=== PATIENT | female | born 1940 | race Caucasian/White ===

== ENCOUNTER 2024-12-17 03:53 | Emergency (ER) | payer MEDICARE ==
[~2024-12-17 03:53] MED LIST: ASPIRIN EC81 MG PO; BELLADONNA30 MG/100 MISC; CALCIUM MAGNES1 EAC2 PO; CINNAMON500 MG PO; COD LIVER OIL1 EAC1 PO; CRANBERRY300 MG PO; EFFEXOR XR37.5 MG PO; FENOFIBRATE160 MG PO; GLUCOSAMINE1000 MG PO; HUMALOG100 UNIT/1 SUB-Q; LANTUS100 UNITS/ SUB-Q; LEVOTHYROXINE75 MCG PO; LISINOPRIL5 MG PO; METFORMIN HCL500 MG PO; OMEGA 3 1,0001 EACH PO; OMEPRAZOLE20 MG PO; PERCOCET 7.5-31 EACH PO; SIMVASTATIN20 MG PO; VITAMIN D-32000 UNIT PO
[2024-12-17] MEDS ORDERED: DEXTROSE 50% 50 ML SYR IV ONE (04:15)
[2024-12-17] MEDS ORDERED: GLUCAGON,HUMAN RECOMBINANT 1 MG/ML VIAL IV ONE (04:15)
[2024-12-17 04:18] LABS: BASOPHILS 0.8 % (0-2); EOSINOPHILS 3.2 % (0-6); HEMATOCRIT 38.4 % (35.0-50.0); LYMPHOCYTES 40.9 % (24-44); MCH 35.3 (27-36); MCHC 33.9 g/dl (30-36); MCV 103.9 fl (81-99); MONOCYTES 7.6 % (0-12); NEUTROPHILS 47.5 % (39-80); PLATELET COUNT 261 K/uL (140-440); RDW 13.6 (10.5-15.0)
[2024-12-17 04:33] LABS: ALBUMIN 3.5 g/dL (3.4-5.0); ANION GAP 8.6 (7-21); BILIRUBIN, TOTAL 0.3 mg/dL (0.2-1.0); BUN/CREATININE RATIO 22.72 (6.0-28.6); CALCIUM 9.5 mg/dL (8.5-10.1); CREATININE, SERUM 0.88 mg/dL (0.55-1.02); MAGNESIUM 1.6 mg/dL (1.8-2.4); POTASSIUM 3.6 mmol/L (3.5-5.1)
[2024-12-17] MEDS ORDERED: GLUCOSE GEL38 GM PO (04:52)
[2024-12-17] MEDS ORDERED: GLUCAGON EMERGEN1 MG INJ (04:52)
[2024-12-17 05:30] VITALS: BP 156/69
== END 2024-12-17 05:30 | disposition home or self-care (01) ==
LOC: ED 03:53
PROVIDERS: Family Medicine
DX: E11.649 Type 2 diabetes mellitus with hypoglycemia without coma (principal); Z79.82 Long term (current) use of aspirin; Z79.84 Long term (current) use of oral hypoglycemic drugs; Z79.4 Long term (current) use of insulin; Z88.2 Allergy status to sulfonamides; Z87.891 Personal history of nicotine dependence
CPT/HCPCS: 36415; 80053; 83735; 85025; 96374; 96375; 99283; J1610